=== PATIENT | male | born 1955 | race Caucasian/White ===

== ENCOUNTER 2020-10-02 16:37 | Emergency (ER) | payer MEDICARE, MEDICAID ==
[~2020-10-02] VITALS: Ht 172.7 cm; Wt 90.7 kg
[~2020-10-02 16:37] MED LIST: ACETAMINOPHEN; ADULT LOW DOSE81 MG PO; AMLODIPINE BESY; AMLODIPINE BESY10 MG PO; ASPIRIN EC325 M1 PO; ASPIRIN325 PO; BACTRIM DS TAB1 EACH PO; CIPROFLOXACIN500 M1 PO; DARVOCET-N 1001 EACH PO; DIOVAN160 MG PO; DOXYCYCLINE 10100 MG PO; FAMOTIDINE PO; FISH OIL 1,0001 EAC5 OR; FLEXERIL PO; HYDROCODON-ACE1 EA12 PO; HYDROCODON-ACE1 EAC7 PO; HYDROCODON-ACE1 EAC8; HYDROCODON-ACE1 EACH PO; HYDROCODONE-AP1 EAC6 PO; IBUPROFEN 600600 M1 PO; IBUPROFEN 800800 MG PO; IMDUR 30 MG TAB30 M1 PO; INDOMETHACIN 5050 M1 PO; KEFLEX500 MG PO; LIPITOR20 MG PO; LISINOPRIL20 MG PO; LISINOPRIL40 MG PO; LORTAB 5-500 T1 EAC1 PO; LORTAB 7.5/5001 TA1 PO; MALOXICAN; METOPROLOL TAR100 MG PO; MICARDIS40 MG PO; MOTRIN IB200 MG PO; NAPROSYN500 MG PO; NIASPAN 500 MG500 M1 OR; NORCO 5-325 TA1 EAC1 PO; NORCO 5-325 TA1 EACH PO; NORFLEX100 MG PO; NORVASC10 MG PO; NORVASC2.5 M1 PO; NORVASC2.5 MG PO; PAXIL10 MG; PERCOCET 10-321 EACH PO; PERCOCET 5-3251 EACH OR; PERCOCET 5-3251 EACH PO; PERCOCET 7.5-31 EACH PO; PLAVIX 75 MG TA75 M1; PLAVIX 75 MG TA75 MG; PLAVIX 75 MG TA75 MG PO; PREVACID 30MG C30 M1 PG; PRILOSEC40 MG PO; PRINIVIL; PRINIVIL40 MG PO; ROBAXIN500 MG PO; SIMVASTATIN40 MG PO; TOPROL; TOPROL XL100 MG PO; TOPROL XL25 MG PO; TOPROL XL50 MG; TRIPLEX PO; XANAX 0.25 MG0.25 MG PO; ZIAC OR; ZOCOR40 MG PO; ZOCOR80 MG PO
[2020-10-02] MEDS ORDERED: CARVEDILOL25 MG PO (16:50)
[2020-10-02] MEDS ORDERED: NORCO 5-325 TA1 EAC2 PO (17:51)
[2020-10-02 17:55] VITALS: BP 156/67
== END 2020-10-02 17:56 | disposition home or self-care (01) ==
LOC: M.ERS 16:37
DX: S90.31XA Contusion of right foot, initial encounter (principal); Z90.49 Acquired absence of other specified parts of digestive tract; Z86.19 Personal history of other infectious and parasitic diseases; Z88.6 Allergy status to analgesic agent; Z88.5 Allergy status to narcotic agent; X50.9XXA Other and unspecified overexertion or strenuous movements or postures, initial encounter; Y93.89 Activity, other specified; Y92.89 Other specified places as the place of occurrence of the external cause; Y99.8 Other external cause status

== ENCOUNTER 2020-11-07 15:15 | Emergency (ER) | payer MEDICARE, MEDICAID ==
[~2020-11-07] VITALS: Ht 172.7 cm; Wt 90.7 kg
[~2020-11-07 15:15] MED LIST changes: +CARVEDILOL25 MG PO; +NORCO 5-325 TA1 EAC2 PO
[2020-11-07] MEDS ORDERED: NORCO 5-325 TA1 EAC2 PO ×2 (16:34→16:38)
[2020-11-07 17:10] VITALS: BP 141/72
== END 2020-11-07 17:11 | disposition home or self-care (01) ==
LOC: M.ERS 15:15
DX: M25.562 Pain in left knee (principal); Z88.6 Allergy status to analgesic agent; Z88.5 Allergy status to narcotic agent; Z90.49 Acquired absence of other specified parts of digestive tract; Z86.19 Personal history of other infectious and parasitic diseases

== ENCOUNTER 2020-11-30 18:49 | Emergency (ER) | payer MEDICARE, MEDICAID ==
[~2020-11-30] VITALS: Ht 172.7 cm; Wt 90.7 kg
[2020-11-30] MEDS ORDERED: CARVEDILOL25 MG PO (19:01)
[2020-11-30] MEDS ORDERED: HYDROCODON-ACE1 EAC7 PO (19:54)
[2020-11-30 20:06] VITALS: BP 166/101
== END 2020-11-30 20:07 | disposition home or self-care (01) ==
LOC: M.ERS 18:49
DX: G89.11 Acute pain due to trauma (principal); M53.3 Sacrococcygeal disorders, not elsewhere classified; E78.5 Hyperlipidemia, unspecified; Z79.899 Other long term (current) drug therapy; Z90.49 Acquired absence of other specified parts of digestive tract; Z88.5 Allergy status to narcotic agent; Z88.8 Allergy status to other drugs, medicaments and biological substances

== ENCOUNTER 2021-08-16 19:54 | Emergency (ER) | payer MEDICARE, MEDICAID ==
[~2021-08-16] VITALS: Ht 172.7 cm; Wt 90.7 kg
[2021-08-16] MEDS ORDERED: FLEXERIL PO (21:42)
[2021-08-16] MEDS ORDERED: IBUPROFEN 800800 M1 PO (21:42)
[2021-08-16 22:09] VITALS: BP 160/78
== END 2021-08-16 22:09 | disposition home or self-care (01) ==
LOC: M.ERS 19:54
DX: S63.91XA Sprain of unspecified part of right wrist and hand, initial encounter (principal); I10 Essential (primary) hypertension; Z98.890 Other specified postprocedural states; Z90.49 Acquired absence of other specified parts of digestive tract; Z79.899 Other long term (current) drug therapy; Z88.6 Allergy status to analgesic agent; Z88.8 Allergy status to other drugs, medicaments and biological substances; X50.1XXA Overexertion from prolonged static or awkward postures, initial encounter; Y93.89 Activity, other specified; Y92.89 Other specified places as the place of occurrence of the external cause; Y99.8 Other external cause status